=== PATIENT | female | born 1950 | race Asian ===

== ENCOUNTER 2020-12-14 13:03 | Emergency (ER) | payer SELFPAY ==
[2020-12-14 13:29] VITALS: BP 134/79; PULSE 80; TEMP 98.1; BMI 25.4
[2020-12-14] MEDS ORDERED: DEXAMETHASONE LIQUID 0.5 MG/5 ML PO ONE (13:58)
[2020-12-14] MEDS ORDERED: DEXAMETHASONE SOD PHOSPHATE 10 MG/1 ML VIAL ONE (13:58)
[2020-12-14 14:43] LABS: INR 0.98 (0.83-1.09); PROTHROMBIN TIME (PATIENT) 12.1 SEC (9.7-13.0)
[2020-12-14 14:46] LABS: ACTIVATED PTT 44.9 SECONDS (25.2-36.5)
[2020-12-17 12:08] LABS: IgG Ab 23 kDa Band Absent (.); IgG Ab 28 kDa Band Absent (.)
[2020-12-17 16:09] LABS: E.chaff HME IgG Negative (Neg:<1:64)
[2020-12-17 17:09] LABS: BABESIA MICROTI ANTIBODY IGG <1:10 (Neg:<1:10); BABESIA MICROTI ANTIBODY IGM <1:10 (Neg:<1:10)
== END 2020-12-14 15:00 | disposition home or self-care (01) ==
LOC: JER 13:03
DX: T50.Z95A Adverse effect of other vaccines and biological substances, initial encounter (principal); L30.9 Dermatitis, unspecified
CPT/HCPCS: 36415; 85610; 85730; 86618; 86666; 86753; 99283-25